=== PATIENT | female | born 1995 | race Caucasian/White ===

== ENCOUNTER 2018-09-02 09:38 | Emergency (ER) | payer MEDICAID, SELFPAY ==
[2018-09-02 09:44] VITALS: BP 117/85; PULSE 95; RESP 18; TEMP 36.4; O2SAT 98
--- NOTE | 2018-09-02 09:48 | W.ED.GENAD ---
Discharge Plan Disposition Patient Disposition: HOME Condition: Stable Discharge Details Chief Complaint: RespSymp Clinical Impression: Acute left otitis media Primary Care Provider: Chepe Mendenhall ED Provider: Saji Martin Home Meds and New Rx's Prescriptions: New azithromycin 500 mg tablet See Rx Instructions .ROUTE .COMPLEX Qty: 6 RF: 0 No Action PNV #[id number] acid-dha 35 mg iron-5 mg iron-1 mg capsule 1 cap PO DAILY Qty: 90 RF: 4 ibuprofen 800 mg tablet 800 mg PO TID PRN (Reason: pain) Qty: 30 RF: 0 ProAir HFA 8.5 GM HFA aerosol inhaler 2 puff Inhalation Q4H PRN PRNQty: 1 RF: 2 Discharge Instructions Instructions: Otitis Media (ED) Medical Decision Making pt comes in with complaint of a week of nasal congestion and sinus pressure and 2 days of left ear pain and sore throat. Denies dyspnea, rashes, chset pain, vomit. She appears well ssytemically, denies alcohol or drug use, does smoke. She has clear rhinorrhea, normal oropharynx, midline uvula, no pain over hyoid, no findings to suggest pharyngitis, rpa, lighter captain, epiglotitis. Right TM appears normal, left tm is red and bulging. Will tx with abx, advised f/u with pcp if not improving in a week and return precautions given Differential Diagnosis uri, influenza, aom HPI General Mode of arrival: ambulatory. Date/Time Provider Initiated Documentation: 09/02/18 09:47. Limitations to Documentation: no limitations. Information obtained by: patient. History of Present Illness 22 year old F presents to the emergency department with the chief complaint of left ear pain, described as moderate, with intensity rated at 5. Quality is described as aching, Patient reports no radiation. Patient started experiencing this day(s) (2) and it has been constant. No relieving factors improve symptom(s), No exacerbating factors reported . Patient notes denies rash. Patient did receive the following treatments prior to arrival, none Related Data Home Medications Medication Instructions Recorded Confirmed albuterol sulfate [Proair Hfa] 2 puff INHALATION Q4H PRN PRN #1 07/06/15 08/15/18 [email or web address] ibuprofen 800 mg tablet 800 mg PO TID PRN #30 tab 07/24/18 08/15/18 vitamin #56-iron 35 mg 1 cap PO DAILY #90 cap 08/15/18 08/15/18 and 5 mg-folic acid 1 mg-dha capsule azithromycin See Rx Instructions .ROUTE 09/02/18 .COMPLEX #6 tab Previous Rx's Medication Instructions Recorded ibuprofen 800 mg tablet 800 mg PO TID PRN #30 tab 07/24/18 vitamin #56-iron 35 mg 1 cap PO DAILY #90 cap 08/15/18 and 5 mg-folic acid 1 mg-dha capsule azithromycin See Rx Instructions .ROUTE 09/02/18 .COMPLEX #6 tab Allergies Allergy/AdvReac Type Severity Reaction Status Date / Time bismuth subsalicylate Allergy Mild Skin Rash Unverified 08/15/18 15:36 [From Pepto-Bismol] Penicillins Allergy RASH Unverified 08/15/18 15:36 General Stated Complaint: RespSymp RUFINO: 4 Review of Systems Review of Systems All systems reviewed & are unremarkable except as noted in HPI and below ENT Denies change in voice Cardiovascular Denies chest pain and Denies dyspnea Respiratory Denies dyspnea Gastrointestinal Denies abdominal pain, Denies nausea and Denies vomiting Genitourinary Denies dysuria Integumentary/Breasts Denies rash Psychiatric Denies depression [facility] Medical History Asthma Depression Dyspareunia LGSIL (low grade squamous intraepithelial dysplasia) Tobacco use disorder contraceptive counseling Family History Daughter No problems noted. Social History adopted: Yes caregiver/support person: No foster care: Yes household members: children housing: homeless number of children: 2 fpc: No current occupational status: unemployed pets and animals: Yes Smoking/Tobacco Use Status: Current every day alcohol intake: current substance use type: marijuana seatbelt use: always Female Reproductive History Menstrual Age of Menarche: 10 Duration of menses: 6-7 days control method: copper IUCD History History 3 Para Hx # Term Pregnancies Multiple births Hx # Pregnancies Ectopic pregnancies AB induced Hx Number of Living Children 3 AB spontaneous Exam Const General: no acute distress Orientation: alert HENMT Head: normal to inspection Ears: external ears normal General nose exam: external nose normal Mouth: moist mucous membranes Eyes General: appearance normal, both eyes and all related structures Neck Neck: normal visual inspection Resp Effort & Inspection: normal respiratory effort and able to speak in complete sentences Cardio Rate: regular rate Skin General skin exam: no rashes or lesions noted Neuro General: alert and oriented x3 Extrem General: normal to inspection Psych Mental Status: mental status grossly normal Course Vital Signs Temperature 36.4 C L 09/02/18 09:44 Pulse 95 H 09/02/18 09:44 Respiratory Rate 18 09/02/18 09:44 Blood Pressure 117/85 09/02/18 09:44 Pulse Oximetry 98 09/02/18 09:44 Temperature 36.4 C L 09/02/18 09:44 Temperature Source Temporal Artery Scan 09/02/18 09:44 Pulse 95 H 09/02/18 09:44 Respiratory Rate 18 09/02/18 09:44 Respiratory Effort 09/02/18 09:44 Blood Pressure 117/85 09/02/18 09:44 Pulse Oximetry 98 09/02/18 09:44
--- NOTE | 2018-09-02 09:56 | ED.GENADUL_ITS ---
Discharge Plan Disposition Patient Disposition: HOME Condition: Stable Discharge Details Chief Complaint: RespSymp Clinical Impression: Acute left otitis media Primary Care Provider: Chepe Mendenhall ED Provider: Saji Martin Home Meds and New Rx's Prescriptions: New azithromycin 500 mg tablet See Rx Instructions .ROUTE .COMPLEX Qty: 6 RF: 0 No Action PNV #[id number] acid-dha 35 mg iron-5 mg iron-1 mg capsule 1 cap PO DAILY Qty: 90 RF: 4 ibuprofen 800 mg tablet 800 mg PO TID PRN (Reason: pain) Qty: 30 RF: 0 ProAir HFA 8.5 GM HFA aerosol inhaler 2 puff Inhalation Q4H PRN PRNQty: 1 RF: 2 Discharge Instructions Instructions: Otitis Media (ED) Medical Decision Making pt comes in with complaint of a week of nasal congestion and sinus pressure and 2 days of left ear pain and sore throat. Denies dyspnea, rashes, chset pain, vomit. She appears well ssytemically, denies alcohol or drug use, does smoke. She has clear rhinorrhea, normal oropharynx, midline uvula, no pain over hyoid, no findings to suggest pharyngitis, rpa, motorized squad captain, epiglotitis. Right TM appears normal, left tm is red and bulging. Will tx with abx, advised f/u with pcp if not improving in a week and return precautions given Differential Diagnosis uri, influenza, aom HPI General Mode of arrival: ambulatory . Date/Time Provider Initiated Documentation: 09/02/18 09:47 . Limitations to Documentation: no limitations . Information obtained by: patient . History of Present Illness 22 year old F presents to the emergency department with the chief complaint of left ear pain, described as moderate, with intensity rated at 5. Quality is described as aching, Patient reports no radiation. Patient started experiencing this day(s) (2) and it has been constant. No relieving factors improve symptom(s), No exacerbating factors reported . Patient notes denies rash. Patient did receive the following treatments prior to arrival, none Related Data Home Medications Medication Instructions Recorded Confirmed albuterol sulfate [Proair Hfa] 2 puff INHALATION Q4H PRN PRN #1 07/06/15 08/15/18 [email or web address] ibuprofen 800 mg tablet 800 mg PO TID PRN #30 tab 07/24/18 08/15/18 vitamin #56-iron 35 mg 1 cap PO DAILY #90 cap 08/15/18 08/15/18 and 5 mg-folic acid 1 mg-dha capsule azithromycin See Rx Instructions .ROUTE 09/02/18 .COMPLEX #6 tab Previous Rx's Medication Instructions Recorded ibuprofen 800 mg tablet 800 mg PO TID PRN #30 tab 07/24/18 vitamin #56-iron 35 mg 1 cap PO DAILY #90 cap 08/15/18 and 5 mg-folic acid 1 mg-dha capsule azithromycin See Rx Instructions .ROUTE 09/02/18 .COMPLEX #6 tab Allergies Allergy/AdvReac Type Severity Reaction Status Date / Time bismuth subsalicylate Allergy Mild Skin Rash Unverified 08/15/18 15:36 [From Pepto-Bismol] Penicillins Allergy RASH Unverified 08/15/18 15:36 General Stated Complaint: RespSymp RUFINO: 4 Review of Systems Review of Systems All systems reviewed & are unremarkable except as noted in HPI and below ENT Denies change in voice Cardiovascular Denies chest pain and Denies dyspnea Respiratory Denies dyspnea Gastrointestinal Denies abdominal pain, Denies nausea and Denies vomiting Genitourinary Denies dysuria Integumentary/Breasts Denies rash Psychiatric Denies depression [facility] Medical History Asthma Depression Dyspareunia LGSIL (low grade squamous intraepithelial dysplasia) Tobacco use disorder contraceptive counseling Family History Daughter No problems noted. Social History adopted: Yes caregiver/support person: No foster care: Yes household members: children housing: homeless number of children: 2 half-way: No current occupational status: unemployed pets and animals: Yes Smoking/Tobacco Use Status: Current every day alcohol intake: current substance use type: marijuana seatbelt use: always Female Reproductive History Menstrual Age of Menarche: 10 Duration of menses: 6-7 days control method: copper IUCD History History 3 Para Hx # Term Pregnancies Multiple births Hx # Pregnancies Ectopic pregnancies AB induced Hx Number of Living Children 3 AB spontaneous Exam Const General: no acute distress Orientation: alert HENMT Head: normal to inspection Ears: external ears normal General nose exam: external nose normal Mouth: moist mucous membranes Eyes General: appearance normal, both eyes and all related structures Neck Neck: normal visual inspection Resp Effort & Inspection: normal respiratory effort and able to speak in complete sentences Cardio Rate: regular rate Skin General skin exam: no rashes or lesions noted Neuro General: alert and oriented x3 Extrem General: normal to inspection Psych Mental Status: mental status grossly normal Course Vital Signs Temperature 36.4 C L 09/02/18 09:44 Pulse 95 H 09/02/18 09:44 Respiratory Rate 18 09/02/18 09:44 Blood Pressure 117/85 09/02/18 09:44 Pulse Oximetry 98 09/02/18 09:44 Temperature 36.4 C L 09/02/18 09:44 Temperature Source Temporal Artery Scan 09/02/18 09:44 Pulse 95 H 09/02/18 09:44 Respiratory Rate 18 09/02/18 09:44 Respiratory Effort 09/02/18 09:44 Blood Pressure 117/85 09/02/18 09:44 Pulse Oximetry 98 09/02/18 09:44
== END 2018-09-02 10:04 | disposition home or self-care (01) ==
PROVIDERS: Emergency Provider Emergency Medicine; PCP Nurse Practitioner
DX: H66.92 Otitis media, unspecified, left ear (principal); F17.210 Nicotine dependence, cigarettes, uncomplicated
CPT/HCPCS: 81025; 99283

== ENCOUNTER 2018-12-29 14:02 | Emergency (ER) | payer MEDICAID, SELFPAY ==
[2018-12-29 14:31] VITALS: BP 134/78; PULSE 84; RESP 16; TEMP 36.8; O2SAT 98
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
[2018-12-29 16:10] VITALS: BP 134/78; PULSE 84; RESP 16; TEMP 36.8; O2SAT 98
== END 2018-12-29 16:10 | disposition home or self-care (01) ==
PROVIDERS: Emergency Provider Student in an Organized Health Care Education/Training Program; PCP Nurse Practitioner
DX: T76.21XA Adult sexual abuse, suspected, initial encounter (principal); F10.10 Alcohol abuse, uncomplicated; Z53.29 Procedure and treatment not carried out because of patient's decision for other reasons
CPT/HCPCS: 81025; 99282

== ENCOUNTER 2018-12-29 18:35 | Emergency (ER) | payer MEDICAID, SELFPAY ==
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
[2018-12-29 20:30] VITALS: BP 145/100; PULSE 103; RESP 16; TEMP 36.8; O2SAT 103
== END 2018-12-29 20:45 | disposition short-term general hospital (02) ==
PROVIDERS: Emergency Provider Physician Assistant; PCP Nurse Practitioner
DX: T76.21XA Adult sexual abuse, suspected, initial encounter (principal)
CPT/HCPCS: 99285; 99284

== ENCOUNTER 2019-01-08 14:07 | Outpatient (CLI) | payer MEDICAID, SELFPAY ==
[2019-01-08 15:26] LABS: TSH (W/Ref FT4) 1.55 uIU/mL (0.358-3.74)
[2019-01-08 15:30] LABS: HCG Quant, Pregnancy < 1 mIU/mL (1-3)
== END 2019-01-08 14:27 ==
PROVIDERS: PCP Nurse Practitioner; Visit Provider Nurse Practitioner Women's Health
DX: N92.6 Irregular menstruation, unspecified (principal)
CPT/HCPCS: 36415; 84443; 84702

== ENCOUNTER 2019-03-05 18:32 | Emergency (ER) | payer MEDICAID, SELFPAY ==
[2019-03-05 18:47] VITALS: BP 131/86; PULSE 85; RESP 16; TEMP 36.8; O2SAT 99
[2019-03-05] MEDS: Albuterol 2.5 MG/3 ML INH SOLN VIAL UPD (19:24)
[2019-03-05 19:43] VITALS: PULSE 78; RESP 16; O2SAT 99
--- NOTE | 2019-03-05 19:46 | DI.RAD_ITS ---
SYMPTOM/DIAGNOSIS: COUGH CHEST X-RAY: PA and lateral. Comparison 10/13/14. The heart is normal in size. The lungs are clear. The mediastinal structures and pleura appear intact. CONCLUSION: Normal chest.
--- NOTE | 2019-03-05 20:11 | DI.VRAD_ITS ---
EXAM: XR Chest, 2 Views EXAM DATE/TIME: 03/05/2019 7:45 PM CLINICAL HISTORY: 23 years old, female; Cough TECHNIQUE: Imaging protocol: XR of the chest, 2 views. COMPARISON: CR CHEST 2 VIEWS PA,LAT 10/13/2014 8:00 PM FINDINGS: Lungs: Patchy increased markings in the lingula segment of the left lung adjacent to the cardiac apex. Pleural space: Unremarkable. No pleural effusion. No pneumothorax. Heart/Mediastinum: Unremarkable. No cardiomegaly. Bones/joints: Unremarkable. IMPRESSION: Possible small lingula infiltrate. Dictated and Authenticated by: Rahat Elena MD. Ordering:LUCÍA Kim MD
--- NOTE | 2019-03-05 20:27 | ED.GENADUL_ITS ---
Discharge Plan Disposition Patient Disposition: HOME Condition: Stable Discharge Details Chief Complaint: RespSymp Clinical Impression: Pneumonia, Asthma exacerbation, mild Primary Care Provider: Kailtin Simmons ED Provider: Julio Roa Home Meds and New Rx's Prescriptions: New doxycycline hyclate 100 mg tablet 100 mg PO BID 7 Days Qty: 14 RF: 0 prednisone 20 mg tablet 40 mg PO DAILY 4 Days Qty: 8 RF: 0 Continued albuterol sulfate [ProAir HFA] 8.5 GM HFA aerosol inhaler 2 puff Inhalation Q4H PRN PRNQty: 1 RF: 2 Discharge Instructions Instructions: Asthma (ED), Pneumonia (ED) Additional Instructions: Please get plenty of rest and take antibiotics as prescribed during illness. Please feel free to return to the emergency department for any new or significant worsening of symptoms and if not improving follow-up with your primary care provider for reassessment next week Referrals: Kaitlin Simmons [Primary Care Provider] - (For reassessment or if not improving by early next week) Discharge Data Discharge Date/Time-TO BE ENTERED AT DEPARTURE: 03/05/19 20:42 Medical Decision Making Patient presenting to the emergency department for chief complaint of cough, night sweats, and some chest tightness. Patient states that this is been going on for the past 3 days. She does state that her significant other was recently diagnosed with pneumonia. Patient does state history of asthma and that she is also been using her inhaler more recently. Patient denies any known fever, does state a headache and some episodes of vomiting couple days ago but that resolved quickly with use of Excedrin. Otherwise patient states some nasal congestion. Physical exam shows a nontoxic well-appearing patient with no signs of respiratory distress, stable vital signs, clear lung sounds but diminished in the lower bases with increased expiration. Exam is otherwise unremarkable. Plan to perform radiological imaging of the chest and give albuterol. Review of radiological imaging and radiologist interpretation shows Possible small lingula infiltrate. Given patient's recent exposure to significant other with pneumonia I do feel treating with antibiotics is warranted. Patient started on doxycycline and medication side effects were discussed with patient. Patient otherwise may be also having asthma exacerbation so placed upon prednisone and given an albuterol inhaler given that she states that she is almost out. Return precautions discussed. After discussion of diagnosis and plan of care patient has no further needs, questions, or concerns and states clear understanding to return to the emergency department for any worsening symptoms. HPI General Mode of arrival: ambulatory . Date/Time Provider Initiated Documentation: 03/05/19 19:00 . Limitations to Documentation: no limitations . Information obtained by: patient and RN notes reviewed . History of Present Illness 23 year old F presents to the emergency department with the chief complaint of cough, described as moderate, with intensity rated at 5. Quality is described as aching, and is localized to the chest. Patient started experiencing this day(s) (3) and it has been constant. No relieving factors improve symptom(s), Patient did receive the following treatments prior to arrival, none Related Data Home Medications Medication Instructions Recorded Confirmed albuterol sulfate [ProAir HFA] 2 puff INHALATION Q4H PRN PRN #1 07/06/15 03/05/19 [email or web address] doxycycline hyclate 100 mg PO BID 7 Days #14 tab 03/05/19 prednisone 40 mg PO DAILY 4 Days #8 tab 03/05/19 Previous Rx's Medication Instructions Recorded doxycycline hyclate 100 mg PO BID 7 Days #14 tab 03/05/19 prednisone 40 mg PO DAILY 4 Days #8 tab 03/05/19 Allergies Allergy/AdvReac Type Severity Reaction Status Date / Time bismuth subsalicylate Allergy Mild Skin Rash Unverified 03/05/19 18:54 [From Pepto-Bismol] Penicillins Allergy RASH Unverified 03/05/19 18:54 General Stated Complaint: RespSymp RUFINO: 3 Review of Systems Constitutional Reports body ache(s), Reports chills, Reports fever(s), Reports headache(s) and Reports malaise Eyes Denies eye discharge ENT Reports as per HPI, Denies ear discharge, Denies otalgia, Reports headache(s), Reports nasal congestion, Reports nasal discharge and Denies neck pain Cardiovascular Denies chest pain and Reports dyspnea Respiratory Reports as per HPI, Reports cough, Reports pain with cough, Reports dyspnea and Denies wheezing Musculoskeletal Denies neck pain Integumentary/Breasts Denies rash Neurologic Reports headache(s) Allergic/Immunologic Denies wheezing PFSH Medical History Asthma contraceptive counseling Depression Dyspareunia LGSIL (low grade squamous intraepithelial dysplasia) Tobacco use disorder Family History Daughter No problems noted. Social History Smoking/Tobacco Use Status: Current every day Tobacco Type: cigarettes Smoking cigarettes per day: 10 Alcohol Intake: current Alcohol Intake frequency: holidays/special occasions only Drug use: Rarely Substance use type: marijuana Adopted: Yes Caregiver/Support person: No Foster care: Yes Household members: children Housing: homeless Number of Children: 2 Pets and animals: Yes Seatbelt use: always Do you feel safe at home: Yes Do you feel safe in your relationship?: Yes Female Reproductive History Menstrual Age of Menarche: 10 Duration of menses: 6-7 days control method: none History History 3 Para Hx # Term Pregnancies Multiple births Hx # Pregnancies Ectopic pregnancies AB induced Hx Number of Living Children 3 AB spontaneous Exam Const General: cooperative, comfortable and no acute distress Orientation: alert and awake HENMI Head: normal to inspection General nose exam: external nose normal Mouth: oral mucosae normal, no drooling, no muffled voice and no trismus Neck Neck: normal visual inspection, full ROM, no lymphadenopathy, no meningeal signs, trachea midline and supple Resp Effort & Inspection: normal respiratory effort, able to speak in complete sentences and not labored Auscultation: clear to auscultation bilaterally, abnormal I/E ratio (Prolonged expiration) and diminished lung sounds bilaterally in the lower lung nguyen Cardio Rate: regular rate Rhythm: regular rhythm Heart Sounds: S1 normal, S2 normal, normal S1 and S2, no click, no gallops, no murmurs and no rubs Skin General skin exam: no rashes or lesions noted and dry skin (warm) Course Vital Signs Temperature 36.8 C 03/05/19 18:47 Pulse 85 03/05/19 18:47 Respiratory Rate 16 03/05/19 18:47 Blood Pressure 131/86 03/05/19 18:47 Pulse Oximetry 99 03/05/19 18:47 Temperature 36.8 C 03/05/19 18:47 Temperature Source Skin 03/05/19 18:47 Pulse 78 03/05/19 19:43 Respiratory Rate 16 03/05/19 19:43 Respiratory Effort 03/05/19 18:56 Respiratory Depth Normal 03/05/19 18:56 Blood Pressure 131/86 03/05/19 18:47 Blood Pressure Position Sitting 03/05/19 18:47 Pulse Oximetry 99 03/05/19 19:43 Oxygen Delivery Method Room Air 03/05/19 18:47 Oxygen Flow Rate 0 03/05/19 18:47 Pain Level 5 03/05/19 18:47 Comment 03/05/19 18:47 Lab/Test Results Lab/Test Results: POC- Test(urine) Negative
[2019-03-05] MEDS: Albuterol HFA 8 GM 60 PUFF INH IH (20:36)
[2019-03-05] MEDS: Doxycycline Hyclate 100 MG CAP PO (20:36)
[2019-03-05] MEDS: Inhaler, Assist Device 1 EACH MC (20:38)
== END 2019-03-05 20:42 | disposition home or self-care (01) ==
PROVIDERS: Emergency Provider Nurse Practitioner Family; PCP Nurse Practitioner
DX: J18.9 Pneumonia, unspecified organism (principal); J45.909 Unspecified asthma, uncomplicated; F17.210 Nicotine dependence, cigarettes, uncomplicated
CPT/HCPCS: 81025; 94640; 99283; 71046; J7613

== ENCOUNTER 2019-10-20 18:20 | Outpatient (REF) | payer MEDICAID, SELFPAY ==
[2019-10-20 18:41] LABS: Abs Immature Grans 0.05 k/cumm (0.0-0.09); Absolute Basophil Count 0.04 k/cumm (0.0-0.2); Absolute Eosinophil Count 0.37 k/cumm (0.0-0.7); Absolute Monocyte Count 0.86 k/cumm (0.11-0.7); Basophils % 0.3; Eosinophils % 3.1; HCT 42.3 % (36.0-46.0); HGB 14.2 g/dL (12.0-15.5); Immature Grans % 0.4 %; Lymphocytes % 26.6; Mean Corp. HGB Concentration 33.6 g/dL (32.0-36.0); Mean Corpuscular Hemoglobin 28.7 pg (27.0-33.0); Mean Corpuscular Volume 85.6 fL (80-95); Mean Platelet Volume 10.4 fL (8.0-11.0); Monocytes % 7.2; Neutrophils % 62.4; Platelet Count 411 x1000/uL (130-400); RBC 4.94 m/cumm (4.00-5.20); RBC Distribution Width 14.6 % (11.7-14.6); White Blood Cell Count 11.97 k/cumm (4.4-10.8)
[2019-10-20 18:42] LABS: Absolute Lymphocyte Count 3.18 k/cumm (1.2-3.4); Absolute Neutrophil Count 7.47 k/cumm (1.2-6.7)
[2019-10-20 19:08] LABS: ALT 25 U/L (14-59); AST 19 U/L (15-37); Albumin 4.2 g/dL (3.4-5.0); Alkaline Phosphatase 101 U/L (46-116); Anion Gap 8.3 mmol/L (3-11); BUN 12 mg/dL (7-18); Bilirubin, Total 0.1 mg/dL (0.2-1.0); CO2 27.7 mmol/L (21.0-32.0); CREATININE 0.64 mg/dL (0.55-1.02); Calcium 9.4 mg/dL (8.5-10.1); Chloride 104 mmol/L (98-107); Glucose 110 mg/dL (74-106); Potassium 4.2 mmol/L (3.5-5.1); Sodium 140 mmol/L (136-145); TSH (W/Ref FT4) 1.11 uIU/mL (0.36-3.74); Total Protein 7.4 g/dL (6.4-8.2)
== END 2019-10-20 18:40 ==
LOC: NCHCN 18:20
PROVIDERS: PCP Nurse Practitioner; Visit Provider Nurse Practitioner Psychiatric/Mental Health
DX: R53.83 Other fatigue (principal); Z51.81 Encounter for therapeutic drug level monitoring
CPT/HCPCS: 80053; 84443; 85025

== ENCOUNTER 2019-11-16 16:22 | Outpatient (REF) | payer MEDICAID, SELFPAY ==
[2019-11-19 12:03] LABS: COVID-19 RT-PCR Result Not Detected (NotDetected)
== END 2019-11-16 16:42 ==
LOC: NCHCN 16:22
PROVIDERS: PCP Nurse Practitioner; Visit Provider Physician Assistant
DX: Z20.828 Contact with and (suspected) exposure to other viral communicable diseases (principal); J06.9 Acute upper respiratory infection, unspecified
CPT/HCPCS: U0003

== ENCOUNTER 2019-11-21 10:16 | Outpatient (CLI) | payer MEDICAID, SELFPAY ==
[2019-11-21 11:05] LABS: D-Dimer 285 ng/mlFEU (<500)
== END 2019-11-21 10:36 ==
PROVIDERS: PCP Nurse Practitioner; Visit Provider Family Medicine
DX: R07.9 Chest pain, unspecified (principal)
CPT/HCPCS: 36415; 85379

== ENCOUNTER 2020-01-29 15:11 | Outpatient (REF) | payer MEDICAID, SELFPAY ==
[2020-01-30 23:29] LABS: COVID-19 RT-PCR Result NEGATIVE (Negative)
== END 2020-01-29 15:31 ==
LOC: NCHCN 15:11
PROVIDERS: PCP Nurse Practitioner; Visit Provider Nurse Practitioner Family
DX: R06.02 Shortness of breath (principal)
CPT/HCPCS: U0003

== ENCOUNTER 2020-02-24 18:08 | Emergency (ER) | payer MEDICAID, SELFPAY ==
--- NOTE | 2020-02-24 18:16 | ED.GENADUL_ITS ---
Discharge Plan Disposition Patient Disposition: HOME Condition: Stable Discharge Details Chief Complaint: Headache Clinical Impression: Headache Primary Care Provider: Kaitlin Simmons ED Provider: Padmaja Gamble Home Meds and New Rx's Prescriptions: New xdxntlcbiu-uboklmwpyuuly-dcuc [Fioricet] 50-300-40 mg capsule 1 cap PO TID PRN (Reason: pain) Qty: 7 RF: 0 Continued fluoxetine 20 mg capsule 30 mg PO DAILY RF: 0 ondansetron HCl 8 mg tablet 8 mg PO Q12H PRNRF: 0 albuterol sulfate [ProAir HFA] 8.5 GM HFA aerosol inhaler 2 puff Inhalation Q4H PRN PRNQty: 1 RF: 2 loratadine 10 mg tablet 10 mg PO DAILY PRN (Reason: allergy symptoms) Qty: 30 RF: 0 Discharge Instructions Instructions: General Headache (ED) Additional Instructions: Encourage water intake. May use some Fioricet as prescribed. This was advised to be safe in . Please take only as prescribed. There is 325 mg of Tylenol in your Fioricet tablets. You may use regular Tylenol but please do not exceed 4000 mg of Tylenol daily. Please contact [facility]UCLE[facility] OPERATIONS SPECIALIST tomorrow to schedule follow-up appointment in the next 2 days. Please also contact your psychologist as your increased dosing of fluoxetine may also be causing your headache. If you develop sensory changes, weakness, increased pain, fevers or other new/worsening symptoms please seek care urgently once again. Referrals: Kaitlin Simmons [Primary Care Provider] - Humberto Em [ [facility] STAFF PHYSICIAN] - Discharge Data Discharge Date/Time-TO BE ENTERED AT DEPARTURE: 02/24/20 19:15 Medical Decision Making Patient is a pleasant 24-year-old female presenting today with chief complaint of headaches. She reports that headaches began 1 week ago. Have been intermittent since that time. States that in general symptoms have started during increased times of stress although in recent days she has noted these when, as well. She reports that the pain typically starts in the back of the neck, and radiates up the occipital aspect of the head and can wrap around towards the frontal aspect. She denies any nausea or vomiting. Patient is 16 weeks gestation. Denies any abdominal pain, discharge. Patient does have an upcoming appoint with NUCLEAR OPERATIONS SPECIALIST next week. She reports that her psychiatric medications have been adjusted recently. 1 week ago, at the same time the symptoms started, dosing of fluoxetine was increased. States that she has been using Tylenol to help with discomfort. On exam, patient is resting comfortably. She does not appear to be in any acute distress. Vital signs within normal limits. No nuchal rigidity. No evidence of trauma. Intact neurologic exam. Her description of the pain as well as her exam is most consistent with a tension headache. Patient states she has had these historically. Exam and history is not consistent with infectious etiology. I see no evidence to suggest intracranial bleed. Do not see any evidence to suggest other underlying etiology. As this is so stress mediated and so consistent with tension headache, I will consult with NUCLE[facility] OPERATIONS SPECIALIST regarding pain management. Consulted with Dr. Ramirez who advised that the patient could use Fioricet to help with her discomfort. Patient states that she has used this historically. She will contact NUCLEAR OPERATIONS SPECIALIST tomorrow. I also discussed with her that this could be associated with the increase fluoxetine as this does correlate timewise and does have a significant correlation with headaches. I also advised to follow-up with psychiatry. Discussed that she could continue with Tylenol but to be careful about dosing as there is acetaminophen and Fioricet. Patient was given strict return precautions. All of her questions and concerns were addressed and she is in agreement this plan. [facility] General Mode of arrival: ambulatory . Date/Time Provider Initiated Documentation: 02/24/20 18:16 . Limitations to Documentation: no limitations . Information obtained by: patient and RN notes reviewed . History of Present Illness 24 year old F presents to the emergency department with the chief complaint of headache, described as moderate, Quality is described as achi ng, and is localized to the head (starts in the back of the neck and comes up the occipital region). Patient reports no radiation. Patient started experiencing this week(s) (1) and it has been intermittent. No relieving factors improve symptom(s), Other factors that worsen symptoms (stress) . Patient notes no other symptoms.. Patient did receive the following treatments prior to arrival, other (tylenol) Related Data Home Medications Medication Instructions Recorded Confirmed albuterol sulfate [ProAir HFA] 2 puff INHALATION Q4H PRN PRN #1 07/06/15 02/24/20 [email or web address] fluoxetine 20 mg capsule 30 mg PO DAILY cap 01/27/20 02/24/20 ondansetron HCl 8 mg tablet 8 mg PO Q12H PRN tab 01/27/20 02/24/20 loratadine 10 mg tablet 10 mg PO DAILY PRN #30 tab 02/20/20 02/24/20 drxorqixzx-hiiewtjulyflk-vfzl 1 cap PO TID PRN #7 cap 02/24/20 [Fioricet] Previous Rx's Medication Instructions Recorded loratadine 10 mg tablet 10 mg PO DAILY PRN #30 tab 02/20/20 rqglmwntuw-seuovncdovzog-tqhs 1 cap PO TID PRN #7 cap 02/24/20 [Fioricet] Allergies Allergy/AdvReac Type Severity Reaction Status Date / Time bismuth subsalicylate Allergy Mild Skin Rash Unverified 02/24/20 18:27 [From Pepto-Bismol] Penicillins Allergy RASH Unverified 02/24/20 18:27 seasonal Allergy Mild Uncoded 02/24/20 18:27 General RUFINO: 3 Review of Systems Constitutional Constitutional: Reports as per HPI, Denies chills, Reports fatigue, Denies fever(s), Denies frequent falls, Reports headache(s), Denies snoring and Denies weakness Eyes Eyes: Reports as per HPI, Denies blurry vision, Denies change in vision and Reports photophobia ENT Ears, Nose, Mouth, and Throat: Denies vertigo, Reports headache(s) and Denies neck pain Cardiovascular Cardiovascular: Reports as per HPI, Denies chest pain, Denies lightheadedness, Denies radiating jaw, neck or arm pain, Denies dyspnea and Denies dyspnea on exertion Respiratory Respiratory: Reports as per HPI, Denies chest congestion, Denies cough, Denies dyspnea, Denies dyspnea on exertion, Denies snoring, Denies stridor and Denies wheezing Gastrointestinal Gastrointestinal: Reports as per HPI, Denies abdominal pain, Denies change in bowel habits, Denies nausea and Denies vomiting Musculoskeletal Musculoskeletal: Reports as per HPI, Denies back pain, Denies myalgias, Denies muscle cramps, Denies neck pain and Denies numbness Integumentary/Breasts Skin/Breast: Reports as per HPI and Denies rash Neurologic Neurologic: Reports as per HPI, Denies abnormal movements, Denies abnormal speech, Denies behavioral changes, Denies confusion, Denies vertigo, Denies frequent falls, Reports headache(s), Denies localized weakness, Denies numbness, Denies sensory deficit and Denies weakness Psychiatric Psychiatric: Denies behavioral changes and Denies confusion Endocrine Endocrine: Reports fatigue Allergic/Immunologic Allergic/Immunologic: Denies wheezing [facility] Social History Smoking/Tobacco Use Status: Current every day Tobacco Type: cigarettes Alcohol Intake: current Alcohol Intake frequency: holidays/special occasions only Drug use: Rarely Substance use type: marijuana Adopted: Yes Caregiver/Support person: No Foster care: Yes Household members: children Housing: homeless Number of Children: 2 Pets and animals: Yes Seatbelt use: always Do you feel safe at home: Yes Do you feel safe in your relationship?: Yes Female Reproductive History Menstrual Age of Menarche: 10 Duration of menses: 6-7 days control method: none History History 4 Para Hx # Term Pregnancies Multiple births Hx # Pregnancies Ectopic pregnancies AB induced Hx Number of Living Children 3 AB spontaneous Exam Const General: cooperative, healthy appearing, uncomfortable, no acute distress, well developed and well groomed Nutritional Appearance: average body habitus and well nourished Orientation: alert, awake and oriented x3 HENMT Head: normal to inspection, no palpable skull fracture, normocephalic and atraumatic Ears: hearing grossly normal bilaterally, external ears normal and TM's normal bilaterally General nose exam: external nose normal Mouth: oral mucosae normal and moist mucous membranes Throat: posterior oropharynx normal Eyes General: appearance normal, both eyes and all related structures Alignment and Position: alignment normal Periorbital: periorbital findings normal Eyelids: eyelids normal Sclera: sclerae normal Cornea: corneas normal Pupils: PERRL EOM: EOM intact bilaterally Neck Neck: normal visual inspection, full ROM, no lymphadenopathy and no meningeal signs Resp Effort & Inspection: normal respiratory effort, able to speak in complete sentences and no respiratory distress Auscultation: clear to auscultation bilaterally, no rales, no rhonchi and no wheezes Cardio Rate: regular rate Rhythm: regular rhythm Heart Sounds: S1 normal and S2 normal GI Inspection: normal to inspection (normal for gestational age) Back/Spine/Pelvis Cervical Spine: normal cervical lordosis and cervical ROM normal Skin General skin exam: no rashes or lesions noted Neuro General: patient alert, patient awake and patient oriented x3 Cranial Nerves: CN's II-XI intact bilaterally Cognition: normal cognition Speech: speech normal Gait: normal gait Motor: muscle tone normal throughout, strength 5/5 throughout, no pronator drift, no movement abnormalities noted and no fasciculations Sensory Exam: no sensory deficits noted Coordination: lxoixr-cl-mxik test normal and byan-nm-mgyn test normal Extrem General: normal to inspection, capillary refill normal, no pedal edema and no calf tenderness Psych Appearance: grossly normal and well kempt Mental Status: mental status grossly normal Speech and Movement: speech and movement normal
[2020-02-24 18:20] VITALS: BP 121/74; PULSE 85; RESP 18; TEMP 36.6; O2SAT 99
[2020-02-24 19:11] VITALS: BP 117/66; PULSE 86; RESP 16; TEMP 36.7; O2SAT 98
== END 2020-02-24 19:15 | disposition home or self-care (01) ==
PROVIDERS: Emergency Provider Physician Assistant; PCP Nurse Practitioner
DX: G44.209 Tension-type headache, unspecified, not intractable (principal); M54.2 Cervicalgia; O99.332 Smoking (tobacco) complicating pregnancy, second trimester; F17.210 Nicotine dependence, cigarettes, uncomplicated; Z3A.16 16 weeks gestation of pregnancy
CPT/HCPCS: 99283

== ENCOUNTER 2020-03-14 00:56 | Outpatient (CLI) | payer MEDICAID, SELFPAY ==
--- NOTE | 2020-03-14 08:15 | DI.US_ITS ---
EXAM: US OB 2-3 TRIMESTER CLINICAL HISTORY: 16 anatomy survey,z34.18. TECHNIQUE: Transabdominal obstetrical ultrasound performed. COMPARISON: No exams were available for comparison FINDINGS:: Number of fetuses: One. position: Vertex. Placental location: Anterior. No evidence of previa. BIOMETRIC DATA: BPD: 44mm = 19+ 1 weeks HC: 172mm = 19+ 5 weeks AC: 139mm = 19+ 2 weeks FL: 31 mm = 19+ 4 weeks EFW: 295 Gms = 57% Composite Age: 19+ 3 EDC: 05 August 2020 No abnormalities are identified. Heart Rate: 157BPM Amniotic fluid . Amount of fluid is within normal limits. IMPRESSION: size and weight are within the expected range. DATA REPOSITORY:
== END 2020-03-14 01:16 ==
PROVIDERS: PCP Nurse Practitioner; Visit Provider Advanced Practice Midwife
DX: Z3A.18 18 weeks gestation of pregnancy (principal); Z34.92 Encounter for supervision of normal pregnancy, unspecified, second trimester
CPT/HCPCS: 76805

== ENCOUNTER 2020-03-16 02:51 | Outpatient (CLI) | payer MEDICAID, SELFPAY ==
[2020-03-16 12:36] LABS: Absolute Basophil Count 0.03 10^3/uL (0.0-0.2); Absolute Eosinophil Count 0.22 10^3/uL (0.0-0.7); Absolute Lymphocyte Count 2.51 10^3/uL (1.2-3.4); Absolute Monocyte Count 0.75 10^3/uL (0.1-0.8); Basophils % 0.3; Eosinophils % 2.1; HCT 33.7 % (36.0-46.0); HGB 11.3 g/dL (11.2-15.7); Lymphocytes % 23.9; MCH 29.6 pg (27.0-33.0); MCHC 33.5 % (32.0-36.0); MCV 88.2 fL (80-95); MPV 10.1 fL (8.0-11.0); Monocytes % 7.1; Neutrophils % 65.6; Platelet Count 272 10^3/uL (130-400); RBC 3.82 10^6/uL (3.93-5.22); RDW 12.7 % (11.7-14.6); RDW-SD 40.6 fL; WBC 10.51 10^3/uL (4.4-10.8)
[2020-03-16 13:02] LABS: Glucose,1 Hr (Glucola) 101 mg/dL (80-140)
[2020-03-17 10:13] LABS: Rubella IgG Ab (UVM) Positive (See Note); Varicella IgG Antibody Positive (See Note)
[2020-03-17 10:32] LABS: Hepatitis B Surface Ag Negative (Negative)
[2020-03-17 11:10] LABS: HIV-1/2 Ag & Ab Screen Negative (Negative)
[2020-03-17 11:23] LABS: Hepatitis C Ab w Rflx HCV PCR Negative (Negative)
[2020-03-18 11:07] LABS: Syphilis Total Ab w/Reflex Nonreactive (Nonreactive)
== END 2020-03-16 03:11 ==
PROVIDERS: Advanced Practice Midwife; PCP Nurse Practitioner; Visit Provider Advanced Practice Midwife
DX: Z34.91 Encounter for supervision of normal pregnancy, unspecified, first trimester (principal); Z34.90 Encounter for supervision of normal pregnancy, unspecified, unspecified trimester; N18.3 Chronic kidney disease, stage 3 (moderate)
CPT/HCPCS: 36415; 82950; 86787; 86803; 86850; 86900; 86901; 87340; 87389; 84443; 85025; 86762; 86780

== ENCOUNTER 2020-05-31 19:05 | Emergency (ER) | payer MEDICAID, SELFPAY ==
[2020-05-31] VITALS (7 sets, daily range): BP systolic 124–136; BP diastolic 70–84; PULSE 77–109; RESP 4–18; TEMP 36.2; O2SAT 97–100
--- NOTE | 2020-05-31 19:00 | RT.EKG_ITS ---
APPROVED REPORT Exam: Resting ECG Patient Location: E HR:100 bpm ECG Measurements Heart Rate 100 AXIS AZ 177 P 61 QRSd 93 QRS 68 QT 341 T 29 QTc 440 Conclusion Sinus tachycardia...rate> 99. No STEMI. I have reviewed and interpreted ECG and agree with software generated interpretation.
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
--- NOTE | 2020-05-31 19:30 | DI.RAD_ITS ---
EXAM: XR PORTABLE CHEST AP CLINICAL HISTORY: SOB, wheezing TECHNIQUE: 2D digital imaging was performed. COMPARISON: No exams were available for comparison FINDINGS: MEDIASTINUM: Normal. HEART: Normal. PULMONARY VASCULATURE: Normal. LUNGS: Clear. PLEURAL SPACE: No pleural effusion or pneumothorax. BONE:Within normal limits for the patient's age. OTHER FINDINGS:Normal. IMPRESSION: No acute pulmonary findings. DATA REPOSITORY: RADIATION DOSE DELIVERED:
[2020-05-31 19:56] LABS: Abs Immature Grans 0.09 10^3/uL (0.0-0.06); Absolute Basophil Count 0.03 10^3/uL (0.0-0.2); Absolute Eosinophil Count 0.27 10^3/uL (0.0-0.7); Absolute Lymphocyte Count 2.11 10^3/uL (1.2-3.4); Absolute Monocyte Count 0.93 10^3/uL (0.1-0.8); Basophils % 0.2; Eosinophils % 2.1; HCT 33.9 % (36.0-46.0); HGB 11.4 g/dL (11.2-15.7); Immature Grans % 0.7; Lymphocytes % 16.7; MCH 29.1 pg (27.0-33.0); MCHC 33.6 % (32.0-36.0); MCV 86.5 fL (80-95); MPV 10.3 fL (8.0-11.0); Monocytes % 7.4; Neutrophils % 72.9; Nucleated RBC 0 %; Platelet Count 312 10^3/uL (130-400); RBC 3.92 10^6/uL (3.93-5.22); RDW 12.7 % (11.7-14.6); RDW-SD 39.8 fL; WBC 12.63 10^3/uL (4.4-10.8)
[2020-05-31] MEDS: Albuterol 2.5 MG/3 ML INH SOLN VIAL UPD (19:57)
[2020-05-31] MEDS: Acetaminophen 500 MG TAB 1000 MG PO (19:57)
[2020-05-31 19:58] LABS: Absolute Neutrophil Count 9.21 10^3/uL (1.2-6.7)
[2020-05-31] MEDS: Normal Saline 1,000 ML 1000 ML IV (19:58)
[2020-05-31 20:14] LABS: ALT 28 U/L (14-59); AST 37 U/L (15-37); Albumin 2.9 g/dL (3.4-5.0); Alkaline Phosphatase 105 U/L (46-116); Anion Gap 10.9 mmol/L (3-11); BUN 6 mg/dL (7-18); Bilirubin, Total 0.2 mg/dL (0.2-1.0); CO2 24.1 mmol/L (21.0-32.0); CREATININE 0.46 mg/dL (0.55-1.02); Calcium 8.8 mg/dL (8.5-10.1); Chloride 102 mmol/L (98-107); Glucose 81 mg/dL (74-106); Potassium 3.7 mmol/L (3.5-5.1); Sodium 137 mmol/L (136-145); Total Protein 6.9 g/dL (6.4-8.2)
--- NOTE | 2020-05-31 20:18 | NUR.NOTE ---
Nursing Note: Patient reports decreased chest pain and cramping after nebulizer treatment.
--- NOTE | 2020-06-02 16:04 | DI.VRAD_ITS ---
PROCEDURE INFORMATION: Exam: XR Chest, 1 View Exam date and time: 05/31/2020 7:34 PM Age: 24 years old Clinical indication: SOB, wheezing TECHNIQUE: Imaging protocol: XR of the chest Views: 1 view. COMPARISON: CR XR CHEST 2V PA LATERAL 03/05/2019 7:45 PM FINDINGS: Lungs: Clear lungs. Pleural space: No pneumothorax. No sizable pleural effusion. Heart/Mediastinum: No cardiomegaly. Bones/joints: Unremarkable. IMPRESSION: Clear lungs. Dictated and Authenticated by: Jonathan Harrison MD. Ordering:JEANNETTE Giang MD
[2020-06-03 16:10] LABS: Patient Race White; SARS-CoV-2 RNA Undetected (Undetected); SARS-CoV-2 Specimen Source Nasopharynx
== END 2020-05-31 21:30 | disposition home or self-care (01) ==
PROVIDERS: Emergency Provider Physician Assistant; PCP Nurse Practitioner
DX: O99.513 Diseases of the respiratory system complicating pregnancy, third trimester (principal); Z3A.30 30 weeks gestation of pregnancy; O99.333 Smoking (tobacco) complicating pregnancy, third trimester; F17.210 Nicotine dependence, cigarettes, uncomplicated; Z03.818 Encounter for observation for suspected exposure to other biological agents ruled out; E86.0 Dehydration; J45.901 Unspecified asthma with (acute) exacerbation
CPT/HCPCS: 36415; 80053; 93005; 96360; 99285; U0003; 71045; 85025; 93010; J7613

== ENCOUNTER 2020-06-21 02:25 | Outpatient (CLI) | payer MEDICAID, SELFPAY ==
[2020-06-21 15:14] LABS: HCT 34.2 % (36.0-46.0); HGB 11.3 g/dL (11.2-15.7); MCH 28.7 pg (27.0-33.0); MCV 86.8 fL (80-95); MPV 9.8 fL (8.0-11.0); Platelet Count 303 10^3/uL (130-400); RBC 3.94 10^6/uL (3.93-5.22); RDW 12.7 % (11.7-14.6); RDW-SD 40.1 fL; WBC 13.29 10^3/uL (4.4-10.8)
[2020-06-21 15:43] LABS: Glucose,1 Hr (Glucola) 110 mg/dL (80-140)
== END 2020-06-21 02:45 ==
PROVIDERS: PCP Nurse Practitioner; Visit Provider Advanced Practice Midwife
DX: Z34.93 Encounter for supervision of normal pregnancy, unspecified, third trimester (principal); Z3A.33 33 weeks gestation of pregnancy
CPT/HCPCS: 36415; 82950; 85027

== ENCOUNTER 2020-06-22 10:36 | Outpatient (REF) | payer MEDICAID, SELFPAY ==
[2020-06-22 11:34] LABS: *AMPHETAMINES SCREEN URINE Negative (Negative); *BARBITURATES SCREEN URINE Negative (Negative); *BENZODIAZEPINES SCREEN URINE Negative (Negative); Cannabinoids THC Negative (Negative); Cocaine Screen,Urine Negative (Negative); METHADONE URINE SCREEN Negative (Negative); OPIATES URINE SCREEN Negative (Negative)
[2020-06-22 11:39] LABS: Tricyclic Antidepressants Negative (Negative)
[2020-06-28 12:01] LABS: Buprenorphine Negative
== END 2020-06-22 10:56 ==
LOC: LBN 10:36
PROVIDERS: PCP Nurse Practitioner; Visit Provider Advanced Practice Midwife
DX: Z34.93 Encounter for supervision of normal pregnancy, unspecified, third trimester (principal)
CPT/HCPCS: 80307; 87086

== ENCOUNTER 2020-06-24 09:18 | Outpatient (CLI) | payer MEDICAID, SELFPAY ==
[2020-06-24 11:40] LABS: ALT 18 U/L (14-59); AST 25 U/L (15-37); Albumin 2.8 g/dL (3.4-5.0); Alkaline Phosphatase 123 U/L (46-116); Bilirubin, Direct 0.05 mg/dL (0.00-0.20); Bilirubin, Total 0.2 mg/dL (0.2-1.0); Total Protein 6.3 g/dL (6.4-8.2)
[2020-06-26 09:32] LABS: Bile Acids, Total 2 mcmol/L (<=10)
== END 2020-06-24 09:38 ==
PROVIDERS: PCP Nurse Practitioner; Visit Provider Advanced Practice Midwife
DX: O99.713 Diseases of the skin and subcutaneous tissue complicating pregnancy, third trimester (principal); L29.9 Pruritus, unspecified
CPT/HCPCS: 36415; 80076; 82239

== ENCOUNTER 2020-07-18 03:59 | Outpatient (CLI) | payer MEDICAID, SELFPAY | END 2020-07-18 04:19 | PROVIDERS: PCP Nurse Practitioner; Visit Provider Advanced Practice Midwife | DX: Z34.93 Encounter for supervision of normal pregnancy, unspecified, third trimester (principal) | CPT/HCPCS: 87081 ==

== ENCOUNTER 2020-07-26 15:21 | Outpatient (REF) | payer MEDICAID, SELFPAY ==
[2020-07-26 16:46] LABS: *AMPHETAMINES SCREEN URINE Negative (Negative); *BARBITURATES SCREEN URINE Negative (Negative); *BENZODIAZEPINES SCREEN URINE Negative (Negative); Cannabinoids THC Negative (Negative); Cocaine Screen,Urine Negative (Negative); METHADONE URINE SCREEN Negative (Negative); OPIATES URINE SCREEN Negative (Negative)
[2020-07-26 16:55] LABS: Tricyclic Antidepressants Negative (Negative)
[2020-07-29 11:45] LABS: Buprenorphine Negative; Norbuprenorphine Negative
== END 2020-07-26 15:41 ==
LOC: LBN 15:21
PROVIDERS: PCP Nurse Practitioner; Visit Provider Advanced Practice Midwife
DX: Z34.93 Encounter for supervision of normal pregnancy, unspecified, third trimester (principal); Z3A.38 38 weeks gestation of pregnancy
CPT/HCPCS: 80307

== ENCOUNTER 2020-07-28 13:41 | Inpatient (IN) | payer MEDICAID, SELFPAY ==
[2020-07-28] VITALS (21 sets, daily range): BP systolic 134–139; BP diastolic 80–83; PULSE 91–109; RESP 18; TEMP 36.5–36.7; O2SAT 98–100
[2020-07-28] MEDS: Lactated Ringers 1,000 ML 500 ML IV (20:05)
[2020-07-28 20:08] LABS: HCT 33.8 % (36.0-46.0); HGB 11.2 g/dL (11.2-15.7); MCH 27.7 pg (27.0-33.0); MCHC 33.1 % (32.0-36.0); MCV 83.7 fL (80-95); MPV 10.7 fL (8.0-11.0); Platelet Count 291 10^3/uL (130-400); RBC 4.04 10^6/uL (3.93-5.22); RDW 13.4 % (11.7-14.6); RDW-SD 40.9 fL; WBC 14.97 10^3/uL (4.4-10.8)
[2020-07-28] MEDS: Nicotine 21 MG/24 HR PATCH TD (20:28)
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
[2020-07-28] MEDS: Lactated Ringers 1,000 ML 1000 ML IV (22:05)
[2020-07-28] MEDS: Pantoprazole 40 MG VIAL IVP (22:08)
[2020-07-28] MEDS: Lactated Ringers 1,000 ML 125 ML IV (23:05)
[2020-07-28] MEDS: miSOPROStol 25 MCG TAB PO (23:16)
[2020-07-29] VITALS (9 sets, daily range): BP systolic 115–147; BP diastolic 65–81; PULSE 70–98; RESP 12–18; TEMP 36.8–37.1; O2SAT 99
[2020-07-29] MEDS: OLANZapine 5 MG TAB PO (00:57)
[2020-07-29] MEDS: miSOPROStol 25 MCG TAB PO (06:21)
[2020-07-29] MEDS: Lactated Ringers 1,000 ML 125 ML IV (06:29)
--- NOTE | 2020-07-29 07:31 | W.PM.OBNL1 ---
Date of service: 07/29/20 Time of Service: 07:32 Assessment and Plan Assessment and plan (1) with 39 completed weeks gestation: Status: Acute Assessment and plan: A: IOL via cervical ripening in progress Multipara, complex social and psych Maternal dehydration on admission now resolved w/IVF P: Continue current therapies and misoprostel protocol Pt hand off to Rowan DELGADILLO @ 0800 Objective Abnormal lab results 07/28/20 Range/Units 19:58 WBC 14.97 H (4.4-10.8) 10^3/uL Hct 33.8 L (36.0-46.0) % Temp Pulse Resp BP Pulse Ox 98.2 F 83 18 130/74 100 07/29/20 03:50 07/29/20 03:48 07/29/20 03:50 07/29/20 03:48 07/28/20 20:06 Laboratory Results WBC 14.97 10^3/uL (4.4-10.8) H 07/28/20 19:58 RBC 4.04 10^6/uL (3.93-5.22) 07/28/20 19:58 Hgb 11.2 g/dL (11.2-15.7) 07/28/20 19:58 Hct 33.8 % (36.0-46.0) L 07/28/20 19:58 MCV 83.7 fL (80-95) 07/28/20 19:58 MCH 27.7 pg (27.0-33.0) 07/28/20 19:58 MCHC 33.1 % (32.0-36.0) 07/28/20 19:58 RDW 13.4 % (11.7-14.6) 07/28/20 19:58 Plt Count 291 10^3/uL (130-400) 07/28/20 19:58 MPV 10.7 fL (8.0-11.0) 07/28/20 19:58 Patient ABO/Rh A Positive 07/28/20 19:58 Antibody Screen Negative 07/28/20 19:58 Vital Signs Reviewed: Yes Objective Narrative Objective Narrative: Pt slept through the night and morning Has received 2 doses of misoprostel 25 mcg PO GBS prophylaxis has not been started yet as pt is not in labor 2-3 liters of LR IV infused since admission with great improvement in EFM tracing Category 1 tracing, pt is normotensive, afebrile Admission labs nml, COVID swab pending Subjective Patient Reports: No new Complaints
[2020-07-29] MEDS: FLUoxetine 20 MG CAP PO (10:05)
[2020-07-29] MEDS: Pantoprazole 40 MG TABCR PO (10:05)
[2020-07-29] MEDS: busPIRone 5 MG TAB 10 MG PO (10:06)
[2020-07-29] MEDS: Penicillin G POT. 3,000,000 UNITS in Normal Saline 50 ML 100 UNITS IVPB (10:37)
[2020-07-29] MEDS: Normal Saline Flush 10 ML SYR IVP (10:44)
--- NOTE | 2020-07-29 10:53 | NUR.NOTE ---
Nitrous started.Nursing Note:
[2020-07-29] MEDS: Nalbuphine 10 MG/ML AMP (11:41)
[2020-07-29] MEDS: Oxytocin/Normal Saline 30 UNIT/500 ML BAG 95 UNITS IV (12:05)
--- NOTE | 2020-07-29 14:17 | W.OBDELIVERY ---
Date of service: 07/29/20 Time of Service: 14:17 OB Labor/ Delivery Information Baby A Delivery Delivery Method: Spontaneaous Presentation: Cephalic Cephalic Position: Vertex Vertex Position: Left Occipital Anterior Cord Description-Baby A: 3 Vessels Amniotic Fluid: Clear Delivery Outcome: Liveborn Labor/Delivery Information Steroids Given: None Reason Steroids Not Administered: N/A Group Beta Strep: Positive Antibiotics Administered: Yes Number of Doses of Antibiotics: 1 Rubella Status: Immune Blood Type: A+ Varicella Immunity: Immune Born En Route: No Maternal Complications: None Shoulder Dystocia: No Note: Maeve received a second dose of mioprostol at 0600. She slept and awoke at 0900 and complained of dicomfort. She was examined and was 4 cms/ post/ +1 station. She progressed rapidly and had an urge to push. She was examined by Evelina watkins CNM and was 9 cms with bulging bag of water. FHTs 130s during first stage of labor. FHTs 140s in second stage. Progressed to full dilation and SROM performed for a large amount of clear fluid. Shortly after, she began pushing. Spontaneous delivery of female infant delivered in SABRINA position. Baby was placed on mother's abdomen and dried and stimulated. Spontaneous cry. Cord was clamped and cut by the baby's father. The placenta delivered spontaneously and appears to by intact with a three vessel cord. Pitocin 30 units IV was administered after delivery of the placenta. The perineum was inspected and appears to be intact with a three vessel cord. The baby did breastfeed. After delivery, Mother and baby and father of the baby were stable and bonding well in the delivery room. Stages of Labor ROM Baby A: 07/29/20 ROM Baby A: 11:49 Infant Delivery Date-Baby A: 07/29/20 Delivery Time-Baby A: 11:57 Placenta Delivery Date-Baby A: 07/29/20 Placenta Delivery Time-Baby A: 12:05 Labor-Stage 3 Duration: 8 minutes Placenta Status: Delivered Baby A Gender: Male Gestational Status: Term (39-41.6 wks) Gestational Age in Weeks/Days: 39 Weeks and 0 Days
[2020-07-29] MEDS: Ibuprofen 600 MG TAB PO (17:50)
[2020-07-29] MEDS: Nicotine 21 MG/24 HR PATCH TD (20:18)
[2020-07-29] MEDS: Acetaminophen 325 MG TAB 650 MG PO (20:25)
[2020-07-29 22:16] LABS: COVID-19 RT-PCR UVMMC Result Negative (Negative)
[2020-07-30] VITALS: BP 121/81; PULSE 102; RESP 18; TEMP 36.7
[2020-07-30] MEDS: Ibuprofen 600 MG TAB PO ×3 (00:10→20:00)
[2020-07-30] MEDS: Acetaminophen 325 MG TAB 650 MG PO ×2 (02:45→20:00)
[2020-07-30 07:26] LABS: HCT 28.2 % (36.0-46.0); HGB 9.4 g/dL (11.2-15.7); MCH 28.1 pg (27.0-33.0); MCHC 33.3 % (32.0-36.0); MCV 84.4 fL (80-95); MPV 10.7 fL (8.0-11.0); Platelet Count 269 10^3/uL (130-400); RBC 3.34 10^6/uL (3.93-5.22); RDW 13.4 % (11.7-14.6); RDW-SD 41.5 fL; WBC 13.33 10^3/uL (4.4-10.8)
[2020-07-30] MEDS: Pantoprazole 40 MG TABCR PO (08:50)
[2020-07-30] MEDS: busPIRone 5 MG TAB 10 MG PO (08:50)
[2020-07-30] MEDS: Docusate Sodium 100 MG CAP PO (09:02)
[2020-07-30 09:37] VITALS: BP 121/73; PULSE 87; RESP 16; TEMP 36.3; O2SAT 99
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
[2020-07-30] MEDS: Nicotine 21 MG/24 HR PATCH TD (19:55)
[2020-07-30 20:05] VITALS: BP 131/82; PULSE 63; RESP 18; TEMP 36.7
[2020-07-30] MEDS: OLANZapine 5 MG TAB 10 MG PO (22:07)
[2020-07-31] MEDS: FLUoxetine 20 MG CAP PO (08:07)
[2020-07-31] MEDS: Pantoprazole 40 MG TABCR PO (08:07)
[2020-07-31] MEDS: busPIRone 5 MG TAB 10 MG PO (08:08)
[2020-07-31] MEDS: Acetaminophen 325 MG TAB 650 MG PO (08:08)
[2020-07-31] MEDS: Ibuprofen 600 MG TAB PO (08:09)
[2020-07-31 09:06] VITALS: BP 127/79; PULSE 85; RESP 18; TEMP 36.7; O2SAT 97
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
== END 2020-07-31 12:37 | disposition home or self-care (01) | DRG 807 ==
PROVIDERS: Advanced Practice Midwife; Admitting Provider Advanced Practice Midwife; PCP Nurse Practitioner; Visit Provider Advanced Practice Midwife
DX: O62.3 Precipitate labor (principal); Z37.0 Single live birth; O99.824 Streptococcus B carrier state complicating childbirth; O99.334 Smoking (tobacco) complicating childbirth; Z87.898 Personal history of other specified conditions; F17.210 Nicotine dependence, cigarettes, uncomplicated; Z88.0 Allergy status to penicillin; O99.344 Other mental disorders complicating childbirth; O26.893 Other specified pregnancy related conditions, third trimester; O99.62 Diseases of the digestive system complicating childbirth; F41.8 Other specified anxiety disorders; Z11.59 Encounter for screening for other viral diseases; F43.10 Post-traumatic stress disorder, unspecified; F90.9 Attention-deficit hyperactivity disorder, unspecified type; Z67.10 Type A blood, Rh positive; E86.0 Dehydration; Z3A.39 39 weeks gestation of pregnancy; Z63.6 Dependent relative needing care at home
CPT/HCPCS: 36415; 85027; 86850; 86900; 86901; U0003; J2540; J3490

== ENCOUNTER 2021-01-13 16:56 | Emergency (ER) | payer MEDICAID, SELFPAY ==
[2021-01-13 17:02] VITALS: BP 140/83; PULSE 84; RESP 18; TEMP 36.7; O2SAT 100
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
== END 2021-01-13 17:35 | disposition home or self-care (01) ==
PROVIDERS: Emergency Provider Physician Assistant; PCP Nurse Practitioner
DX: R68.84 Jaw pain (principal); W51.XXXA Accidental striking against or bumped into by another person, initial encounter
CPT/HCPCS: 99282; 99283

== ENCOUNTER 2021-10-10 15:21 | Emergency (ER) | payer MEDICAID, SELFPAY ==
[2021-10-10 15:30] VITALS: BP 137/72; PULSE 98; RESP 16; TEMP 36.5; O2SAT 99
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
[2021-10-10 16:09] VITALS: BP 121/71; PULSE 95; RESP 14; TEMP 37; O2SAT 99
--- NOTE | 2021-10-10 16:20 | DI.RAD_ITS ---
Exam(s) XR WRIST LT COMPLETE EXAM: XR WRIST LT COMPLETE CLINICAL HISTORY: injury/pain TECHNIQUE: COMPARISON: No exams were available for comparison FINDINGS: Three views were obtained. There is no evidence of acute fracture or dislocation. Carpal alignment appears within normal limits. IMPRESSION: RADIATION DOSE DELIVERED: Total DLP
[2021-10-10 16:53] VITALS: BP 121/71; PULSE 95; RESP 14; TEMP 37; O2SAT 99
== END 2021-10-10 17:03 | disposition home or self-care (01) ==
PROVIDERS: Emergency Provider Physician Assistant; PCP Nurse Practitioner
DX: S63.592A Other specified sprain of left wrist, initial encounter (principal); X50.1XXA Overexertion from prolonged static or awkward postures, initial encounter
CPT/HCPCS: 29125; 81025; 99283; 73110

== ENCOUNTER 2021-12-05 17:17 | Outpatient (REF) | payer MEDICAID, SELFPAY ==
[2021-12-05 21:38] LABS: Abs Immature Grans 0.06 10^3/uL (0.0-0.06); Absolute Basophil Count 0.07 10^3/uL (0.0-0.2); Absolute Eosinophil Count 0.34 10^3/uL (0.0-0.7); Absolute Lymphocyte Count 3.69 10^3/uL (1.2-3.4); Absolute Monocyte Count 0.71 10^3/uL (0.1-0.8); Basophils % 0.6; Eosinophils % 2.9; HCT 41.8 % (36.0-46.0); HGB 13.9 g/dL (11.2-15.7); Immature Grans % 0.5; Lymphocytes % 31.4; MCH 29.1 pg (27.0-33.0); MCHC 33.3 % (32.0-36.0); MCV 87.4 fL (80-95); MPV 10.4 fL (8.0-11.0); Neutrophils % 58.6; Platelet Count 354 10^3/uL (130-400); RBC 4.78 10^6/uL (3.93-5.22); RDW 13.5 % (11.7-14.6); RDW-SD 43.8 fL; WBC 11.75 10^3/uL (4.4-10.8)
[2021-12-05 21:40] LABS: Absolute Neutrophil Count 6.89 10^3/uL (1.2-6.7)
[2021-12-05 22:49] LABS: ALT 24 U/L (14-59); AST 18 U/L (15-37); Albumin 3.9 g/dL (3.4-5.0); Alkaline Phosphatase 85 U/L (46-116); Anion Gap 8.4 mmol/L (3-11); BUN 11 mg/dL (7-18); Bilirubin, Total 0.2 mg/dL (0.2-1.0); CO2 28.6 mmol/L (21.0-32.0); CREATININE 0.7 mg/dL (0.55-1.02); Calcium 8.8 mg/dL (8.5-10.1); Chloride 103 mmol/L (98-107); Glucose 119 mg/dL (74-106); Potassium 3.9 mmol/L (3.5-5.1); Sodium 140 mmol/L (136-145); TSH (W/Ref FT4) 0.71 uIU/mL (0.36-3.74); Total Protein 7.1 g/dL (6.4-8.2)
[2021-12-05 23:24] LABS: HCG Quant, Pregnancy < 1 mIU/mL (1-3)
== END 2021-12-05 17:18 | disposition home or self-care (01) ==
LOC: NCHCN 17:17
PROVIDERS: PCP Nurse Practitioner; Visit Provider Nurse Practitioner Family
DX: F39 Unspecified mood [affective] disorder (principal); G47.9 Sleep disorder, unspecified; F43.10 Post-traumatic stress disorder, unspecified; J45.21 Mild intermittent asthma with (acute) exacerbation; Z72.89 Other problems related to lifestyle
CPT/HCPCS: 80053; 84443; 84702; 85025

== ENCOUNTER → 2022-02-01 09:49 | Outpatient (CLI) | payer MEDICAID, SELFPAY ==
--- NOTE | 2022-02-01 | DI.RAD_ITS ---
Exam(s) XR SHOULDER LT COMPLETE 2+V EXAM: XR SHOULDER LT COMPLETE 2+V CLINICAL HISTORY: LT SHOULDER PAIN, M25.512,FELT POP,LIFTING INJURY,TENDERNESS PROXIMAL SHOUL. TECHNIQUE: 2D digital imaging was performed. COMPARISON: No exams were available for comparison FINDINGS: Four views No evidence of fracture or dislocation. Subacromial space is not diminished but there is a small 2 m illimeter calcification in the soft tissues of the lateral subacromial space indicating an element of calcific tendinitis. There are no degenerative changes in the glenohumeral and AC joints. IMPRESSION: Small calcific density adjacent to the greater tuberosity most probably indicates an element of rotat or cuff calcific tendinitis. DATA REPOSITORY: RADIATION DOSE DELIVERED:
--- OUTSIDE RECORDS SUMMARY | 2022-02-01 09:52 | XMS_ITS ---
:1995 Author Care Team Providers Name Role Phone ANA LUISA HUYNH Primary Care Provider [phone] [facility] MEDICAL RECORDS Primary Care Provider [phone] Allergies Code Code System Name Reaction Severity Status Onset Penicillins ? ? Active ? 82794 RxNorm Pepto-bismol ? ? Active ? Medications Name Status Start Date Stop Date ? ? buspirone Active ? Not available fluoxetine 20 mg capsule Active ? Not ailyn ilable Take 1 capsule every day by oral route. Nicoderm CQ 21 mg/24 hr daily transdermal patch Active ? Not available Apply 1 patch every day by transdermal route. Proair Digihaler 90 mcg/actuation aerosol powder breath act, sen sor Active ? Not available Inhale 2 puffs every 4 hours by inhalation route. quetiapine 50 mg tablet Active ? Not avai lable Take 1 tablet twice a day by oral route. Problems Name Status Onset Date Source ? Substance Abuse Active 11/27/2019 ? Smoker Active 11/27/2019 ? Posttraumatic Stress Disorder Active 11/27/2019 ? Depressive Disorder Active 11/27/2019 ? Allergic Rhinitis Active 11/27/2019 ? Asthma Active 11/27/2019 ? Amenorrhea Active 11/27/2019 ? Sleep Disorder Active 11/27/2019 ? Fatigue Active 11/27/2019 ? Snoring Active 12/24/2019 ? Procedures None recorded. Results Lab Results None recorded. Past Encounters 11/23/2020 Snoring Izzy Scott WELDING MACHINE OPERATOR GAS: [address] [place] [address] [address], [place] [address], Ph. Social History Tobacco Smoking Status Current Every Day Smoker Vaccine List None recorded. Plan of Care Reminders Provider Appointments None recorded. ? ? Lab None recorded. ? ? Referral None recorded. ? ? Procedures None recorded. ? ? Surgeries None recorded. ? ? Imaging None recorded. ? ? Vitals Height Weight BMI 165.1 cm 81.65 kg 30 kg/m2
== END ==
PROVIDERS: PCP Nurse Practitioner; Visit Provider Physician Assistant Medical
DX: S49.92XA Unspecified injury of left shoulder and upper arm, initial encounter (principal); X50.0XXA Overexertion from strenuous movement or load, initial encounter; M89.8X1 Other specified disorders of bone, shoulder; Y93.89 Activity, other specified
CPT/HCPCS: 73030

== ENCOUNTER 2022-02-05 12:12 | Outpatient (REF) | payer MEDICAID, SELFPAY ==
--- NOTE | 2022-02-05 11:10 | PAPFT_PTH ---
PATIENT: Maeve Darby LOC: [facility] U#:[id number] AGE/SX: 26/F ROOM: RE02/05/[address]: Alicia Naranjo MD : 1995 BED: DIS: 02/05/2022 SPEC #: [id number] RECD: 02/05/22 12:49 STATUS: OMAR REQ #: [id number] SHELIA: 02/05/22 11:[address]: Alicia Naranjo DEPT: [facility] Cytology RECD BY: Paris Condon ENTERED: 02/05/22 12:50 SP TYPE: PAPFT OTHR DR: Kaitlin Simmons Tissues: 1 - CX/ENDOCX FOR PAP SMEARS Procedures: PAP THIN PREP/[facility] Screening Comments: [id number]
== END 2022-02-05 12:13 | disposition home or self-care (01) ==
LOC: LBN 12:12
PROVIDERS: PCP Nurse Practitioner; Visit Provider Obstetrics & Gynecology
DX: Z12.4 Encounter for screening for malignant neoplasm of cervix (principal); R87.612 Low grade squamous intraepithelial lesion on cytologic smear of cervix (LGSIL)
CPT/HCPCS: 88142

== ENCOUNTER 2022-10-11 00:12 | Emergency (ER) | payer MEDICAID, SELFPAY ==
[2022-10-11 00:15] VITALS: BP 114/84; PULSE 89; RESP 16; TEMP 36.8; O2SAT 99
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
== END 2022-10-11 02:52 | disposition home or self-care (01) ==
PROVIDERS: Emergency Provider Physician Assistant; PCP Nurse Practitioner
DX: F32.A Depression, unspecified (principal); R45.851 Suicidal ideations
CPT/HCPCS: 99285; 99283

== ENCOUNTER 2024-02-26 07:11 | Emergency (ER) | payer MEDICAID, SELFPAY ==
[2024-02-26 06:41] VITALS: BP 142/90; PULSE 80; RESP 18; TEMP 37; O2SAT 99
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
[2024-02-26] MEDS: Ondansetron O.D.T. 4 MG TABEF PO (07:49)
[2024-02-26] MEDS: cloNIDine 0.1 MG TAB PO (07:49)
[2024-02-26 09:35] VITALS: BP 105/70; PULSE 82; RESP 18; O2SAT 99
== END 2024-02-26 09:53 | disposition home or self-care (01) ==
PROVIDERS: Emergency Provider Emergency Medicine
DX: F14.23 Cocaine dependence with withdrawal (principal)
CPT/HCPCS: 99283

== ENCOUNTER 2024-03-03 04:22 | Emergency (ER) | payer MEDICAID, SELFPAY ==
[2024-03-03] VITALS (37 sets, daily range): BP systolic 101–166; BP diastolic 61–118; PULSE 50–122; RESP 11–32; TEMP 37.1; O2SAT 88–100
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
[2024-03-03] MEDS: Ondansetron O.D.T. 4 MG TABEF PO (04:42)
[2024-03-03] MEDS: cloNIDine 0.1 MG TAB PO (04:42)
[2024-03-03 05:47] LABS: Abs Immature Grans 0.04 10^3/uL (0.0-0.06); Absolute Basophil Count 0.05 10^3/uL (0.0-0.2); Absolute Eosinophil Count 0.09 10^3/uL (0.0-0.7); Absolute Lymphocyte Count 2.11 10^3/uL (1.2-3.4); Absolute Monocyte Count 0.71 10^3/uL (0.1-0.8); Basophils % 0.4 %; Eosinophils % 0.8 %; HCT 41.1 % (36.0-46.0); HGB 14.1 g/dL (11.2-15.7); Immature Grans % 0.4 %; Lymphocytes % 18.6 %; MCH 29.6 pg (27.0-33.0); MCHC 34.3 % (32.0-36.0); MCV 86 fL (80-95); MPV 9.7 fL (8.0-11.0); Monocytes % 6.3 %; Neutrophils % 73.5 %; Platelet Count 330 10^3/uL (130-400); RBC 4.76 10^6/uL (3.93-5.22); RDW 12.6 % (11.7-14.6); RDW-SD 39.8 fL; WBC 11.34 10^3/uL (4.4-10.8)
[2024-03-03 05:48] LABS: Absolute Neutrophil Count 8.33 10^3/uL (1.2-6.7)
[2024-03-03] MEDS: Buprenorphine/Naloxone 4 mg/1 mg FILM 1 EACH SL ×2 (06:03→06:49)
[2024-03-03 06:11] LABS: ALT 24 U/L (14-59); AST 19 U/L (15-37); Albumin 4.3 g/dL (3.4-5.0); Alkaline Phosphatase 90 U/L (46-116); Anion Gap 9.8 mmol/L (3-11); BUN 12 mg/dL (7-18); Bilirubin, Total 0.69 mg/dL (0.2-1.0); CO2 28.2 mmol/L (21.0-32.0); CREATININE 0.8 mg/dL (0.55-1.02); Calcium 9.9 mg/dL (8.5-10.1); Chloride 104 mmol/L (98-107); Estimated GFR 101.59 (mL/min/1.73m2); Glucose 102 mg/dL (74-106); Potassium 3.6 mmol/L (3.5-5.1); Sodium 142 mmol/L (136-145); Total Protein 7.9 g/dL (6.4-8.2)
[2024-03-03 06:13] LABS: *AMPHETAMINES SCREEN URINE Positive (Negative); *BARBITURATES SCREEN URINE Negative (Negative); *BENZODIAZEPINES SCREEN URINE Negative (Negative); Cannabinoids THC Positive (Negative); Cocaine Screen,Urine Positive (Negative); METHADONE URINE SCREEN Negative (Negative); OPIATES URINE SCREEN Negative (Negative)
[2024-03-03 06:15] LABS: Tricyclic Antidepressants Negative (Negative)
[2024-03-03 06:15] LABS: ETHANOL BLOOD < 3.0 mg/dL (<10)
--- NOTE | 2024-03-03 06:15 | NUR.NOTE ---
Pt came in via EMS for active withdrawal. Attempted to get over to [facility] this morning for treatment, per MD. No physicians at [facility] today (03/03/24). Physicians only at [facility] on and Fridays. Administered 4 mg Suboxone film SL per MD. Called [facility], set up appointment with KIARA help desk coordinator. Appointment made for 03/05/2024 at 07:[address] [place]. This will be a one-hour appointment and then will immediately have a counseling appointment for one hour. Pt informed and gave documentation for reminder. Opioid Consent signed and MAT consent signed by pt and MD. Initial COWS score 9 on arrival. Repeat COWS 29. Will continue to monitor and will give handoff report to next RN on shift. Derian Boo, FELIPEN, RN 06:28 03/03/2024.
--- NOTE | 2024-03-03 07:55 | W.EDPROG ---
Date of service: 03/25/24 Time of Service: 07:55 Medical Decision Making Care of patient assumed in signout. Patient is a 28-year-old female with polysubstance abuse history seeking sobriety. Has been started on Suboxone today. Final disposition pending reevaluation. Plan for discharge with Suboxone dose and Narcan. Patient reevaluated, given a final dose of Suboxone in the emergency department for a total of 12 mg. She will be discharged with a take-home dose of Suboxone dose for tomorrow and has follow-up arranged at [facility] on . She is also discharged with Zofran to take as needed. She is encouraged to remain for. She was provided with a Narcan dose as well. Return precautions advised Medical Records Medical records reviewed: Yes I reviewed the patient's medical records. Quality:[facility] Health Related Social Needs: Health related social needs details homeless, drug dependence Sign Out Sign Out Data: Sign Out Comment: pending re-eval for withdrawal with plan to d/c w/ Suboxone to go package, script for Narcan and follow up at [facility] morning at 7:30 Last updated by Ponce Haji MD at 03/03/24 07:49 Discharge Plan Disposition Patient Disposition: Home Discharge Details Clinical Impression: Substance abuse, Opiate withdrawal Primary Care Provider: Unknown,Unknown ED Provider: Mayelin Whitman Home Meds and New Rx's Prescriptions: No Action Mirena 20 mcg/24 hours (7 yrs) 52 mg intrauterine device 1 device intrauterine ONCE Rx Instructions: as a single dose albuterol sulfate [ProAir HFA] 8.5 GM HFA aerosol inhaler 2 puff Inhalation Q4H PRN PRNQty: 1 Discharge Instructions Instructions: Substance Misuse Treatment Additional Instructions: You have been provided with a dose of BUPRENORPHINE to go home with and take TOMORROW . do not take this dose until tomorrow morning you have been provided a narcan nasal spray to use or have your friends use in the event of opiate overdose you have also been given zofran to take as needed please drink lots of water YOU ARE SCHEDULED AT [facility] ON SATURDAY AT 730AM to initiate on going treatment with their clinic Discharge Data Discharge Date/Time-TO BE ENTERED AT DEPARTURE: 03/03/24 10:16
[2024-03-03] MEDS: Buprenorphine 2 MG SUBLINGUAL TABLET 4 MG SL (08:20)
[2024-03-03] MEDS: Ondansetron O.D.T. 4 MG TABEF, 3 TABS/BTL PO (10:01)
[2024-03-03] MEDS: Buprenorphine 2 MG SUBLINGUAL TABLET 12 MG SL (10:01)
[2024-03-03 20:18] LABS: Hepatitis C Ab w Rflx HCV PCR Negative (Negative)
[2024-03-03 20:26] LABS: HBs Antibody, Quant 268.4 mIU/mL (See Note); Hep B Surface Ab Positive (See Note); Hepatitis B Core Antibody Negative (Negative); Hepatitis B Surface Antigen Negative (Negative)
[2024-03-03 20:30] LABS: HIV-1/2 Ag & Ab Screen Negative (Negative)
== END 2024-03-03 10:16 | disposition home or self-care (01) ==
PROVIDERS: Emergency Medicine; Emergency Provider Emergency Medicine
DX: F11.13 Opioid abuse with withdrawal (principal); F19.19 Other psychoactive substance abuse with unspecified psychoactive substance-induced disorder; F17.210 Nicotine dependence, cigarettes, uncomplicated; Z59.00 Homelessness unspecified
CPT/HCPCS: 00123; 80053; 80307; 86704; 86706; 86803; 87340; 87389; 99283; 80320; 85025; J3490

== ENCOUNTER 2025-03-15 15:36 | Outpatient (REF) | payer MEDICAID, SELFPAY | END 2025-03-15 15:37 | disposition home or self-care (01) | LOC: LBN 15:36 | PROVIDERS: Visit Provider Advanced Practice Midwife | DX: N89.8 Other specified noninflammatory disorders of vagina (principal) | CPT/HCPCS: 87480; 87510; 87660 ==